=== PATIENT | male | born 1960 | race Caucasian/White ===

== ENCOUNTER 2019-10-03 13:00 | Emergency (ER) | payer BC, OTHER ==
--- NOTE | 2019-10-03 13:08 | PDOC ---
Attending Attestation - Resident Resident Name: Clark Jarrell - HPI HPI: 10/03/19 14:51 Pt presents to the ED complaining of a one week history of hoarse voice accompanied by mild sore throat. Also complains of dry cough. States that he can feel liquid running down the back of his throat. Denies fever. Denies nausea or vomiting. Complains of mild nasal congestion. Patient has has similar symptoms in the past that resolved with nasal spray. - Physicial Exam PE: 10/03/19 15:53 Agree with resdient exam. patient is alert and oriented x 3 and in no acute distress. Lungs are clear. Thoat has erythema with no exudate. - Medical Decision Making 10/03/19 15:54 Pt presents to the ED complaining of hoarse voice. No signs of infection. Symptoms are most consistent with post nasal drip. Will discharge home with instructions to return to the ED for worsening symptoms.
--- NOTE | 2019-10-03 13:10 | PDOC ---
History of Present Illness - General Chief Complaint: Respiratory Stated Complaint: RASPY VOICE 1 WEEK AND COUGH Time Seen by Provider: 10/03/19 13:07 History Source: Patient Exam Limitations: No Limitations Past History - Past Medical History Allergies/Adverse Reactions: Allergies Allergy/AdvReac Type Severity Reaction Status Date / Time apple Allergy Intermediate Cough Verified 10/03/19 13:46 nut - unspecified Allergy Intermediate Cough Verified 10/03/19 13:46 Home Medications: Ambulatory Orders Loratadine/Pseudoephedrine [Allergy Relief D-24Hr Tablet] 1 each PO DAILY #7 tab.er.24h 10/03/19 - Psycho Social/Smoking Cessation Hx Smoking History: Current every day smoker 'Breaking Loose' booklet given: 05/15/15 Hx Alcohol Use: Yes Review of Systems - Review of Systems Able to Perform ROS?: Yes Is the patient limited Thai proficient: No Medical Decision Making - Medical Decision Making 10/03/19 13:08 HPI: 58M NK-PMH c/o 2 weeks of productive cough (clear sputum) w/ 1 week of loss of voice. Mild runny nose, mild itchy throat. No difficulty swallowing or breathing. Endorsed f/c in the beginning of the course but no current f/c. Denies cp/sob, n/v, dysuria/frequency. Denies changes in vision or hearing. Endorses headaches w/ cough (often gets headaches w/ cough, these ones unchanged ). ROS: CONSTITUTIONAL: Endorses prior F / C but no current HEENT: Endorses headaches w/ cough, itchy throat, mild rhinorrhea. Denies changes in vision / hearing. Denies sore throat. RESP: Endorses productive cough (CC). Denies SOB CARD: Denies chest pain, palpitations GI: Denies N / V / D, abdominal pain, bloody stool, inability to tolerate PO : Denies dysuria, frequency SKIN: Denies rashes MSK: Denies joint pains, myalgias NEURO: Denies numbness, tingling, weakness PE: VSWNL GEN: Well appearing, NAD, comfortable. AAOx3 HEENT: NC/AT. No facial asymmetry. Moist mucous membranes. Posterior oropharynx erythematous w/o exudates. Hoarse, decreased voice. Supple neck w/ FROM. CV: S1/S2, RRR, no m/r/g LUNG: CTAB, no wheezes, crackles, rales, rhonchi. GI: soft, ndnt, +BS, no guarding, no rebound. EXTREMITIES: No obvious deformities of all extremities. SKIN: warm, dry, normal turgor PSYCH: normal mood and affect NEURO: Moving all extremities well. MDM: 58M 2 weeks of productive cough and 1 week of voice hoarseness. Likely a postnasal drip vs viral URI - reassurance - claritin D to pharmacy - ENT referral - DC home w/ ENT f/u, voice rest, return precautions Discharge - Discharge Information Problems reviewed: Yes Clinical Impression/Diagnosis: Postnasal drip Condition: Stable Disposition: HOME - Admission No - Additional Discharge Information Prescriptions: Loratadine/Pseudoephedrine [Allergy Relief D-24Hr Tablet] 1 each PO DAILY #7 tab.er.24h - Follow up/Referral Referrals: Fifi White [Primary Care Provider] - Keith Merino MD [Staff Physician] - - Patient Discharge Instructions Additional Instructions: We have sent a medication to help with your symptoms to your pharmacy. 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 Take an NSAID (e.g. ibuprofen) for pain, headache, and inflammation. Follow up in the next 3-5 days with Ears, nose, and throat regarding your symptoms. We referred you to Dr. Merino, please call and schedule an appointment. Follow up with your primary care doctor in the next 7 days. Please rest your voice. Immediately return to the closest Emergency Department for any new, concerning, or worsening symptoms. - Post Discharge Activity
[2019-10-03 13:16] VITALS: BP 130/75; PULSE 92; TEMP 98.8; BMI 26.4
== END 2019-10-03 13:53 | disposition home or self-care (01) ==
LOC: FER 13:00
DX: R09.82 Postnasal drip (principal); F17.210 Nicotine dependence, cigarettes, uncomplicated
CPT/HCPCS: 99282-25